=== PATIENT | male | born 1950 | race Caucasian/White ===

== ENCOUNTER 2022-04-23 04:03 | Day surgery (SDC) | payer BC ==
[2022-04-21 17:19] VITALS: BMI 28.7
[2022-04-23] MEDS ORDERED: PROPOFOL 40 ML ONE (13:22)
[2022-04-23] MEDS ORDERED: MIDAZOLAM HCL 2 MG/2 ML SINGLE DOSE VIAL ONE (13:22)
[2022-04-23] MEDS ORDERED: LIDOCAINE HCL 2% 100 MG/5 ML DISP.SYRIN ONE (13:38)
[2022-04-23] MEDS ORDERED: LIDOCAINE HCL 1%, 10 MG/ML (20ML VIAL) ONE (13:46)
[2022-04-23] MEDS ORDERED: ceFAZolin SODIUM 1 GM VIAL IVPB ONE (13:50)
[2022-04-23] MEDS ORDERED: LIDOCAINE HCL 1%, 10 MG/ML (20ML VIAL) INF ONE (13:51)
[2022-04-23] MEDS ORDERED: PROPOFOL 20 ML ONE (15:00)
[2022-04-23] MEDS ORDERED: BUPIVACAINE HCL/PF 0.5% (5MG/ML) 10 ML VIAL IJ ONE (15:20)
[2022-04-23] MEDS ORDERED: oxyCODONE HCL 5 MG TABLET PO PRN (15:55)
[2022-04-23] MEDS ORDERED: ONDANSETRON 4 MG/2 ML VIAL IVPUSH PRN (15:55)
[2022-04-23 17:33] VITALS: RESP 18
[2022-04-23 18:26] VITALS: BP 142/60; PULSE 77; TEMP 97.5
== END 2022-04-23 18:53 | disposition home or self-care (01) ==
LOC: JASU-SURG 04:03 → EDSEX 13:00 → JASU-SURG 18:53
PROVIDERS: ATTEND Podiatrist Foot Surgery
PROC: 0LXT0ZZ Transfer Left Ankle Tendon, Open Approach (ICD-10-PCS; principal; 2022-04-23 13:00)
DX: M66.272 Spontaneous rupture of extensor tendons, left ankle and foot (principal)
CPT/HCPCS: 76000-TC-FY; 94760

== ENCOUNTER 2022-06-04 19:35 | Emergency (ER) | payer BC ==
[2022-06-04 19:44] VITALS: RESP 18; BMI 28.7
[2022-06-04] MEDS ORDERED: ACETAMINOPHEN 1000 MG/100 ML BAG IVPB ONE (20:37)
[2022-06-04] MEDS ORDERED: ACETAMINOPHEN INJECTION 100 ML IVPB ONE (21:00)
[2022-06-04] MEDS ORDERED: DALBAVANCIN HCL 1,500 MG in DEXTROSE 5%-WATER - 500 ML IVPB ONE (21:14)
[2022-06-04 21:31] LABS: EOS % 6.9 % (0-4.5); HEMATOCRIT 47.1 % (35.4-49); HEMOGLOBIN 15.6 GM/dL (11.7-16.9); LYMPH % 22.5 % (8-40); MCH 30.8 pg (25.7-33.7); MCHC 33.2 g/dl (32.0-35.9); MEAN CELL VOLUME 92.8 fl (80-96); MEAN PLT VOLUME 9.1 fl (7.5-11.1); MONO % 11.9 % (3.8-10.2); NEUT % 57.7 % (42.8-82.8); PLATELET COUNT 170 10^3/uL (134-434); RBC 5.07 M/mm3 (4.00-5.60); RDW 13.4 % (11.9-15.9); WHITE BLOOD COUNT 6.4 K/mm3 (4.0-10.0)
[2022-06-04] MEDS ORDERED: DALBAVANCIN HCL 500 MG VIAL (RESTRICTED TO ID ONLY) IVPB ONE (21:32)
[2022-06-04 21:39] LABS: BLOOD UREA NITROGEN 23.8 mg/dL (7-18); CALCIUM 9.9 mg/dL (8.5-10.1)
[2022-06-04 21:42] LABS: CREATININE 1.3 mg/dL (0.55-1.3)
[2022-06-04 21:44] LABS: BILIRUBIN,TOTAL 0.6 mg/dL (0.2-1); TOT PROT 7.8 g/dl (6.4-8.2)
[2022-06-04 21:53] VITALS: BP 155/80; PULSE 70; TEMP 98.7
== END 2022-06-04 23:28 | disposition home or self-care (01) ==
LOC: JER 19:35
PROC: 3E0333Z Introduction of Anti-inflammatory into Peripheral Vein, Percutaneous Approach (ICD-10-PCS; principal; 2022-06-04)
PROC: 3E03329 Introduction of Other Anti-infective into Peripheral Vein, Percutaneous Approach (ICD-10-PCS; 2022-06-04)
DX: T81.41XA Infection following a procedure, superficial incisional surgical site, initial encounter (principal)
CPT/HCPCS: 36415; 73630-TC-RT-FY; 80053; 85025; 87040; 96374; 96375; 99284-25; J0875